=== PATIENT | female | born 1995 | race Caucasian/White ===

== ENCOUNTER 2018-02-25 12:38 | Outpatient (REF) | payer MEDICAID, SELFPAY | END 2018-02-25 12:58 | LOC: NCHCN 12:38 | PROVIDERS: PCP Physician Assistant Medical; Visit Provider Physician Assistant Medical | DX: L29.8 Other pruritus (principal); E03.9 Hypothyroidism, unspecified | CPT/HCPCS: 84443; 87480; 87510; 87660 ==

== ENCOUNTER 2018-04-10 15:14 | Outpatient (REF) | payer MEDICAID, SELFPAY ==
[2018-04-10 22:50] LABS: Bacteria Few HPF (Negative); Casts Negative LPF (Negative); Crystals Negative HPF (Negative); Epithelial Cells Many HPF (Negative); Mucus Negative (Negative); RBC Negative (0-2); WBC 0-2 HPF (0-5)
[2018-04-10 22:51] LABS: C & S Indicated? No
[2018-04-14 11:50] LABS: Syphilis Serology (RPR) Negative (Negative)
[2018-04-14 11:55] LABS: HIV-1/2 Ag & Ab Screen Negative (NEGAT)
[2018-04-14 14:07] LABS: Chlamydia Result Negative; GC Result Negative; Specimen Description VAGINAL
== END 2018-04-10 15:34 ==
LOC: NCHCN 15:14
PROVIDERS: PCP Physician Assistant Medical; Visit Provider Specialist/Technologist Athletic Trainer
DX: Z11.4 Encounter for screening for human immunodeficiency virus [HIV] (principal); Z11.3 Encounter for screening for infections with a predominantly sexual mode of transmission; N89.8 Other specified noninflammatory disorders of vagina; R30.0 Dysuria
CPT/HCPCS: 87389; 87491; 87591; 81015; 86592; 87480; 87510; 87660

== ENCOUNTER 2018-07-08 11:29 | Outpatient (REF) | payer MEDICAID, SELFPAY ==
[2018-07-08 20:42] LABS: ALT 21 U/L (12-78); AST 27 U/L (15-37); Albumin 4.6 g/dL (3.4-5.0); Alkaline Phosphatase 61 U/L (46-116); Anion Gap 14.2 mmol/L (3-11); BUN 10 mg/dL (7-18); Bilirubin, Total 0.9 mg/dL (0.2-1.0); CO2 21.8 mmol/L (21.0-32.0); CREATININE 0.66 mg/dL (0.55-1.02); Calcium 9.5 mg/dL (8.5-10.1); Chloride 101 mmol/L (98-107); FREE T4 1.43 ng/dL (0.76-1.46); Glucose 105 mg/dL (70-100); Potassium 4.3 mmol/L (3.5-5.1); Sodium 137 mmol/L (136-145); TSH 1.15 uIU/mL (0.358-3.74); Total Protein 7.9 g/dL (6.4-8.2)
[2018-07-09 17:03] LABS: T3, Total 144 ng/dl (97-169)
== END 2018-07-08 11:49 ==
LOC: NCHCN 11:29
PROVIDERS: PCP Physician Assistant Medical; Visit Provider Physician Assistant Medical
DX: E03.9 Hypothyroidism, unspecified (principal); L65.9 Nonscarring hair loss, unspecified; D64.9 Anemia, unspecified
CPT/HCPCS: 80053; 84439; 84443; 84480; 85025

== ENCOUNTER 2018-07-11 14:53 | Outpatient (REF) | payer MEDICAID, SELFPAY ==
[2018-07-11 18:58] LABS: Abs Immature Grans 0.01 k/cumm (0.0-0.09); Absolute Basophil Count 0.02 k/cumm (0.0-0.2); Absolute Eosinophil Count 0.06 k/cumm (0.0-0.7); Absolute Lymphocyte Count 2.71 k/cumm (1.2-3.4); Absolute Neutrophil Count 3.59 k/cumm (1.2-6.7); Basophils % 0.3; Eosinophils % 0.9; HGB 12.4 g/dL (12.0-15.5); Immature Grans % 0.1; Lymphocytes % 39.9; Mean Corp. HGB Concentration 34.4 g/dL (32.0-36.0); Mean Corpuscular Volume 87.2 fL (80-95); Mean Platelet Volume 9.9 fL (8.0-11.0); Monocytes % 5.9; Neutrophils % 52.9; Platelet Count 315 x1000/uL (130-400); RBC 4.13 m/cumm (4.00-5.20); RBC Distribution Width 12.5 % (11.7-14.6); White Blood Cell Count 6.79 k/cumm (4.4-10.8)
== END 2018-07-11 15:13 ==
LOC: NCHCN 14:53
PROVIDERS: PCP Physician Assistant Medical; Visit Provider Physician Assistant Medical
DX: D64.9 Anemia, unspecified (principal)
CPT/HCPCS: 85025

== ENCOUNTER 2018-11-03 09:28 | Outpatient (REF) | payer MEDICAID, SELFPAY ==
--- NOTE | 2018-11-03 08:10 | PAPFT_PTH ---
PATIENT: Jm Banegas LOC: [facility] U#:[id number] AGE/SX: 23/F ROOM: RE11/03/[address]: Kayla Santos : 1995 BED: DIS: 11/03/2018 SPEC #: [id number] RECD: 11/04/18 12:58 STATUS: CHATO RELouis #: [id number] ACOSTA: 11/03/18 08:[address]: Kayla Santos DEPT: [facility] Cytology RECD BY: Rosi Kitchen Tissues: 1 - CX/ENDOCX FOR PAP SMEARS Procedures: PAP THIN PREP/UVM Screening Comments: [id number]
[2018-11-05 12:51] LABS: Chlamydia Result Negative; GC Result Negative; Specimen Description CERVIX
== END 2018-11-03 09:48 ==
LOC: NCHCN 09:28
PROVIDERS: PCP Physician Assistant Medical; Visit Provider Physician Assistant Medical
DX: Z11.3 Encounter for screening for infections with a predominantly sexual mode of transmission (principal); Z12.4 Encounter for screening for malignant neoplasm of cervix
CPT/HCPCS: 87491; 87591; 88142; 87480; 87510; 87660

== ENCOUNTER 2020-09-14 12:55 | Outpatient (REF) | payer MEDICAID, SELFPAY ==
[2020-09-14 15:56] LABS: Absolute Basophil Count 0.02 10^3/uL (0.0-0.2); Absolute Eosinophil Count 0.06 10^3/uL (0.0-0.7); Absolute Lymphocyte Count 1.53 10^3/uL (1.2-3.4); Absolute Monocyte Count 0.29 10^3/uL (0.1-0.8); Absolute Neutrophil Count 2.09 10^3/uL (1.2-6.7); Basophils % 0.5; Eosinophils % 1.5; HCT 34.7 % (36.0-46.0); HGB 11.4 g/dL (11.2-15.7); Lymphocytes % 38.3; MCH 29.2 pg (27.0-33.0); MCHC 32.9 % (32.0-36.0); MCV 88.7 fL (80-95); Monocytes % 7.3; Neutrophils % 52.4; Nucleated RBC 0 %; Platelet Count 260 10^3/uL (130-400); RBC 3.91 10^6/uL (3.93-5.22); RDW 12.3 % (11.7-14.6); RDW-SD 39.8 fL; WBC 3.99 10^3/uL (4.4-10.8)
[2020-09-14 16:35] LABS: ALT 24 U/L (14-59); AST 18 U/L (15-37); Albumin 4.3 g/dL (3.4-5.0); Alkaline Phosphatase 72 U/L (46-116); Anion Gap 10.8 mmol/L (3-11); BUN 6 mg/dL (7-18); Bilirubin, Total 0.8 mg/dL (0.2-1.0); CO2 27.2 mmol/L (21.0-32.0); CREATININE 0.7 mg/dL (0.55-1.02); Calculated LDL 81 mg/dL (<100); Chloride 106 mmol/L (98-107); Cholesterol 152 mg/dL (<200); Glucose 88 mg/dL (74-106); HDL Cholesterol 57 mg/dL (40-60); Potassium 3.9 mmol/L (3.5-5.1); Sodium 144 mmol/L (136-145); TSH 0.83 uIU/mL (0.36-3.74); Total Protein 7.4 g/dL (6.4-8.2); Triglyceride 70 mg/dL (<150)
== END 2020-09-14 12:56 | disposition home or self-care (01) ==
LOC: NCHCN 12:55
PROVIDERS: PCP Physician Assistant Medical; Visit Provider Physician Assistant Medical
DX: E03.9 Hypothyroidism, unspecified (principal); U07.1 COVID-19
CPT/HCPCS: 80053; 80061; 84443; 85025

== ENCOUNTER 2021-01-23 15:45 | Outpatient (REF) | payer MEDICAID, SELFPAY ==
[2021-01-23 20:28] LABS: HCT 38.5 % (36.0-46.0); HGB 12.3 g/dL (11.2-15.7)
[2021-01-25 10:17] LABS: HIV-1/2 Ag & Ab Screen Negative (Negative)
[2021-01-25 10:28] LABS: Hepatitis C Ab w Rflx HCV PCR Negative (Negative)
[2021-01-25 11:15] LABS: Syphilis Serology (RPR) Negative (Negative)
[2021-01-25 15:00] LABS: Chlamydia Result Negative (Negative); GC Result Negative (Negative)
== END 2021-01-23 15:46 | disposition home or self-care (01) ==
LOC: NCHCN 15:45
PROVIDERS: PCP Physician Assistant Medical; Visit Provider Physician Assistant Medical
DX: D64.9 Anemia, unspecified (principal); Z11.3 Encounter for screening for infections with a predominantly sexual mode of transmission; Z11.4 Encounter for screening for human immunodeficiency virus [HIV]; Z11.59 Encounter for screening for other viral diseases
CPT/HCPCS: 86803; 87389; 87491; 87591; 85014; 85018; 86592

== ENCOUNTER 2021-03-08 15:50 | Outpatient (REF) | payer MEDICAID, SELFPAY | END 2021-03-08 15:51 | disposition home or self-care (01) | LOC: NCHCN 15:50 | PROVIDERS: PCP Physician Assistant Medical; Visit Provider Physician Assistant Medical | DX: N39.0 Urinary tract infection, site not specified (principal) | CPT/HCPCS: 87086 ==

== ENCOUNTER 2021-03-13 02:29 | Outpatient (CLI) | payer MEDICAID, SELFPAY ==
--- NOTE | 2021-03-13 10:30 | DI.US_ITS ---
Exam(s) US ABDOMEN EXAM: US ABDOMEN CLINICAL HISTORY: RUQ PAIN R10.11 TECHNIQUE: Ultrasound of complete upper abdomen performed using standard protocol. COMPARISON: US SURVEY*(P) from 03/01/2011 FINDINGS: There is no ascites evident. LIVER: There are no hepatic lesions evident nor obvious dilatation of intrahepatic ducts. GALLBLADDER/BILIARY: There are no gallstones. No gallbladder wall edema nor pericholecystic fluid. The common hepatic duct isnot dilated, measuring 3-4mm at the level of reagan hepatis. PANCREAS: There is no evidence of pancreatic mass nor dilatation of the pancreatic duct. SPLEEN: The spleen is not enlarged and there are no intrasplenic lesions evident. KIDNEYS:Kidneys exhibit normal size with no evidence of solid mass, calculus, nor hydronephrosis. No cortical cysts evident. ABDOMINAL AORTA: There is no evidence of abdominal aortic aneurysm. IVC: Normal diameter where visualized. IMPRESSION: 1. No evidence of cholelithiasis nor dilatation of the biliary tree. 2. No other significant ultrasound findings in the upper abdomen. 3. There is no ascites. DATA REPOSITORY:
== END 2021-03-13 02:49 ==
PROVIDERS: PCP Physician Assistant Medical; Visit Provider Physician Assistant Medical
DX: R10.11 Right upper quadrant pain (principal)
CPT/HCPCS: 76700

== ENCOUNTER 2021-08-17 21:07 | Outpatient (REF) | payer MEDICAID, SELFPAY | END 2021-08-17 21:08 | disposition home or self-care (01) | LOC: LBN 21:07 | PROVIDERS: PCP Physician Assistant Medical; Visit Provider Family Medicine | DX: N39.0 Urinary tract infection, site not specified (principal) | CPT/HCPCS: 87086 ==

== ENCOUNTER 2021-09-04 17:21 | Outpatient (REF) | payer MEDICAID, SELFPAY ==
[2021-09-04 22:41] LABS: Abs Immature Grans 0.02 10^3/uL (0.0-0.06); Absolute Basophil Count 0.03 10^3/uL (0.0-0.2); Absolute Eosinophil Count 0.02 10^3/uL (0.0-0.7); Absolute Lymphocyte Count 1.65 10^3/uL (1.2-3.4); Absolute Monocyte Count 0.46 10^3/uL (0.1-0.8); Basophils % 0.4; Eosinophils % 0.3; HCT 38.4 % (36.0-46.0); HGB 12.7 g/dL (11.2-15.7); Immature Grans % 0.3; MCH 31.5 pg (27.0-33.0); MCHC 33.1 % (32.0-36.0); MCV 95 fL (80-95); MPV 10.1 fL (8.0-11.0); Monocytes % 6.4; Neutrophils % 69.6; Platelet Count 333 10^3/uL (130-400); RBC 4.03 10^6/uL (3.93-5.22); RDW 12.3 % (11.7-14.6); RDW-SD 43.2 fL; WBC 7.18 10^3/uL (4.4-10.8)
[2021-09-04 22:57] LABS: Hemoglobin A1C 5.2 % (<5.7)
[2021-09-04 23:03] LABS: ALT 19 U/L (14-59); AST 18 U/L (15-37); Albumin 4.5 g/dL (3.4-5.0); Alkaline Phosphatase 47 U/L (46-116); BUN 10 mg/dL (7-18); Bilirubin, Total 1.4 mg/dL (0.2-1.0); CREATININE 0.9 mg/dL (0.55-1.02); Calcium 9.1 mg/dL (8.5-10.1); Chloride 105 mmol/L (98-107); Glucose 75 mg/dL (74-106); Potassium 4.9 mmol/L (3.5-5.1); Sodium 139 mmol/L (136-145); TSH 0.52 uIU/mL (0.36-3.74); Total Protein 7.5 g/dL (6.4-8.2)
== END 2021-09-04 17:22 | disposition home or self-care (01) ==
LOC: NCHCN 17:21
PROVIDERS: PCP Physician Assistant Medical; Visit Provider Physician Assistant Medical
DX: R55 Syncope and collapse (principal)
CPT/HCPCS: 80053; 83036; 84443; 85025

== ENCOUNTER → 2021-09-19 02:01 | Outpatient (CLI) | payer MEDICAID, SELFPAY ==
--- NOTE | 2021-09-19 07:45 | DI.MRI_ITS ---
Exam(s) MR BRAIN WO EXAM: MR BRAIN WO CLINICAL HISTORY: SYNCOPE, R55; ? NEW ONSET SEIZURE TECHNIQUE: Multiplanar multisequence MRI of the brain was performed. COMPARISON: No exams were available for comparison FINDINGS: The ventricular system is normal in appearance. No signal abnormality identified in the brain. The orbital and temporal bone structures appear intact as does the pituitary. Diffusion weighted imaging shows no evidence of infarction. Susceptibility weighted imaging shows no evidence of intracranial hemorrhage. There is normal flow void in the [place] vasculature. Coronal high-resolution T2 weighted images show no evidence of a temporal lobe abnormality such as me sial temporal sclerosis. IMPRESSION: Normal brain MRI. DATA REPOSITORY:
== END ==
PROVIDERS: PCP Physician Assistant Medical; Visit Provider Physician Assistant Medical
DX: R55 Syncope and collapse (principal)
CPT/HCPCS: 70551

== ENCOUNTER 2021-09-22 15:45 | Outpatient (REF) | payer MEDICAID, SELFPAY ==
[2021-09-22 15:49] LABS: Bilirubin Negative (Negative); Blood Negative (Negative); Clarity Clear (Clear); Glucose Negative (Negative); Ketones 15 mg/dL (Negative); Leukocyte Esterase Negative (Negative); Nitrite Negative (Negative); Urobilinogen 0.2 EU/dL (Up TO 0.2)
[2021-09-25 10:24] LABS: Syphilis Serology (RPR) Negative (Negative)
[2021-09-25 10:57] LABS: HIV-1/2 Ag & Ab Screen Negative (Negative)
[2021-09-25 11:48] LABS: Hepatitis C Ab w Rflx HCV PCR Negative (Negative)
[2021-09-25 15:22] LABS: Chlamydia Result Negative (Negative); GC Result Negative (Negative)
== END 2021-09-22 15:46 | disposition home or self-care (01) ==
LOC: NCHCN 15:45
PROVIDERS: PCP Physician Assistant Medical; Visit Provider Nurse Practitioner Family
DX: Z11.3 Encounter for screening for infections with a predominantly sexual mode of transmission (principal); Z11.4 Encounter for screening for human immunodeficiency virus [HIV]; Z11.59 Encounter for screening for other viral diseases; R30.9 Painful micturition, unspecified
CPT/HCPCS: 86803; 87389; 87491; 87591; 81003; 86592; 87480; 87510; 87660

== ENCOUNTER 2022-09-05 12:13 | Outpatient (REF) | payer MEDICAID, SELFPAY ==
--- NOTE | 2022-09-05 11:15 | PAPFT_PTH ---
PATIENT: Jm Banegas LOC: [facility]#:[id number] AGE/SX: 27/F ROOM: RE09/05/[address]: Kayla Santos : 1995 BED: DIS: 09/05/2022 SPEC #: [id number] RECD: 09/05/22 17:08 STATUS: CHATO RELouis #: [id number] ACOSTA: 09/05/22 11:[address]: Kayla Santos DEPT: [facility] Cytology RECD BY: Rosi Kitchen Tissues: 1 - CX/ENDOCX FOR PAP SMEARS Procedures: PAP THIN PREP/UVM Screening Comments: [id number] (CHLAMYDIA/GC)
[2022-09-13 11:35] LABS: Chlamydia Result Negative (Negative)
[2022-09-13 11:36] LABS: GC Result Negative (Negative)
== END 2022-09-05 12:14 | disposition home or self-care (01) ==
LOC: NCHCN 12:13
PROVIDERS: PCP Physician Assistant Medical; Visit Provider Physician Assistant Medical
DX: Z11.3 Encounter for screening for infections with a predominantly sexual mode of transmission (principal); Z12.4 Encounter for screening for malignant neoplasm of cervix
CPT/HCPCS: 87491; 87591; 88142

== ENCOUNTER 2022-09-05 15:33 | Outpatient (CLI) | payer MEDICAID, SELFPAY ==
[2022-09-05 15:31] LABS: HCT 35.6 % (36.0-46.0); MCHC 33.7 % (32.0-36.0); MCV 92 fL (80-95); MPV 8.9 fL (8.0-11.0); Platelet Count 278 10^3/uL (130-400); RBC 3.87 10^6/uL (3.93-5.22); RDW 11.8 % (11.7-14.6); RDW-SD 39.5 fL
[2022-09-05 16:03] LABS: ALT 25 U/L (14-59); AST 18 U/L (15-37); Albumin 4.2 g/dL (3.4-5.0); Alkaline Phosphatase 60 U/L (46-116); Anion Gap 9.8 mmol/L (3-11); BUN 10 mg/dL (7-18); Bilirubin, Total 0.7 mg/dL (0.2-1.0); CO2 25.2 mmol/L (21.0-32.0); CREATININE 0.7 mg/dL (0.55-1.02); Calcium 8.9 mg/dL (8.5-10.1); Chloride 103 mmol/L (98-107); Estimated GFR 119.99 (mL/min/1.73m2); Glucose 91 mg/dL (74-106); Potassium 3.7 mmol/L (3.5-5.1); Sodium 138 mmol/L (136-145); TSH 0.35 uIU/mL (0.36-3.74); Total Protein 7.5 g/dL (6.4-8.2)
== END 2022-09-05 15:34 | disposition home or self-care (01) ==
LOC: LBO 15:34
PROVIDERS: PCP Physician Assistant Medical; Visit Provider Physician Assistant Medical
DX: D03.9 Melanoma in situ, unspecified (principal); D64.9 Anemia, unspecified; F98.8 Other specified behavioral and emotional disorders with onset usually occurring in childhood and adolescence
CPT/HCPCS: 36415; 80053; 85027; 84443

== ENCOUNTER 2022-11-06 16:35 | Outpatient (REF) | payer MEDICAID, SELFPAY ==
[2022-11-06 19:49] LABS: TSH (W/Ref FT4) 3.23 uIU/mL (0.36-3.74)
== END 2022-11-06 16:36 | disposition home or self-care (01) ==
LOC: NCHCN 16:35
PROVIDERS: PCP Physician Assistant Medical; Visit Provider Physician Assistant Medical
DX: E03.9 Hypothyroidism, unspecified (principal)
CPT/HCPCS: 84443

== ENCOUNTER 2023-02-05 15:27 | Outpatient (REF) | payer MEDICAID, SELFPAY ==
[2023-02-05 16:24] LABS: TSH 1.11 uIU/mL (0.36-3.74)
[2023-02-06 09:59] LABS: Hepatitis C Ab w Rflx HCV PCR Negative (Negative)
[2023-02-06 10:14] LABS: HIV-1/2 Ag & Ab Screen Negative (Negative)
[2023-02-06 12:39] LABS: Syphilis Serology (RPR) Negative (Negative)
[2023-02-06 13:11] LABS: Chlamydia Result Negative (Negative); GC Result Negative (Negative)
== END 2023-02-05 15:28 | disposition home or self-care (01) ==
LOC: NCHCN 15:27
PROVIDERS: PCP Physician Assistant Medical; Visit Provider Physician Assistant Medical
DX: Z11.3 Encounter for screening for infections with a predominantly sexual mode of transmission (principal); E03.9 Hypothyroidism, unspecified
CPT/HCPCS: 86803; 87389; 87491; 87591; 84443; 86592

== ENCOUNTER 2023-05-28 08:22 | Outpatient (CLI) | payer MEDICAID, SELFPAY | END 2023-05-28 08:23 | disposition home or self-care (01) | LOC: CARDOPNVT 08:22 | PROVIDERS: PCP Physician Assistant Medical; Visit Provider Physician Assistant Medical | DX: I45.81 Long QT syndrome (principal) | CPT/HCPCS: 93246 ==

== ENCOUNTER 2023-06-05 14:28 | Outpatient (CLI) | payer MEDICAID, SELFPAY ==
[2023-06-05 15:08] LABS: TSH (W/Ref FT4) 0.76 uIU/mL (0.36-3.74)
== END 2023-06-05 14:29 | disposition home or self-care (01) ==
LOC: LBO 14:28
PROVIDERS: PCP Physician Assistant Medical; Visit Provider Physician Assistant Medical
DX: E03.9 Hypothyroidism, unspecified (principal)
CPT/HCPCS: 36415; 84443

== ENCOUNTER 2023-06-12 03:49 | Outpatient (CLI) | payer MEDICAID, SELFPAY ==
[2023-06-12 15:11] LABS: Abs Immature Grans 0.02 10^3/uL (0.0-0.06); Absolute Basophil Count 0.06 10^3/uL (0.0-0.2); Absolute Eosinophil Count 0.06 10^3/uL (0.0-0.7); Absolute Lymphocyte Count 2.27 10^3/uL (1.2-3.4); Absolute Monocyte Count 0.46 10^3/uL (0.1-0.8); Basophils % 0.7; Eosinophils % 0.7; HCT 37.1 % (36.0-46.0); HGB 12.2 g/dL (11.2-15.7); Immature Grans % 0.2; Lymphocytes % 26.5; MCH 29.5 pg (27.0-33.0); MCHC 32.9 % (32.0-36.0); MCV 90 fL (80-95); MPV 9.8 fL (8.0-11.0); Monocytes % 5.4; Neutrophils % 66.5; Platelet Count 235 10^3/uL (130-400); RBC 4.13 10^6/uL (3.93-5.22); RDW 12.9 % (11.7-14.6); RDW-SD 42.3 fL; WBC 8.57 10^3/uL (4.4-10.8)
[2023-06-12 18:06] LABS: Panorama Kit Sent via Fed Ex
[2023-06-12 22:32] LABS: Hepatitis B Surface Ag Negative (Negative)
[2023-06-12 23:01] LABS: HIV-1/2 Ag & Ab Screen Negative (Negative)
[2023-06-12 23:03] LABS: Hepatitis C Ab w Rflx HCV PCR Negative (Negative)
[2023-06-13 10:31] LABS: Varicella IgG Antibody Positive (See Note)
[2023-06-13 10:33] LABS: Rubella IgG Ab (UVM) Positive (See Note)
[2023-06-14 12:27] LABS: Syphilis IgG w/Reflex Nonreactive (Nonreactive)
== END 2023-06-12 03:50 | disposition home or self-care (01) ==
LOC: LBO 03:49
PROVIDERS: PCP Physician Assistant Medical; Visit Provider Advanced Practice Midwife
DX: Z34.91 Encounter for supervision of normal pregnancy, unspecified, first trimester (principal); Z3A.10 10 weeks gestation of pregnancy; Z36.89 Encounter for other specified antenatal screening
CPT/HCPCS: 36415; 86787; 86803; 86850; 86900; 86901; 87340; 87389; 85025; 86762; 86780

== ENCOUNTER 2023-06-12 14:18 | Outpatient (REF) | payer MEDICAID, SELFPAY ==
[2023-06-12 18:09] LABS: *AMPHETAMINES SCREEN URINE Negative (Negative); *BARBITURATES SCREEN URINE Negative (Negative); *BENZODIAZEPINES SCREEN URINE Negative (Negative); Cannabinoids THC Negative (Negative); Cocaine Screen,Urine Negative (Negative); METHADONE URINE SCREEN Negative (Negative); OPIATES URINE SCREEN Negative (Negative)
[2023-06-12 18:13] LABS: Tricyclic Antidepressants Negative (Negative)
[2023-06-14 11:38] LABS: Fentanyl Scr w/Rfx Confirm Negative ng/mL (<1)
[2023-06-14 13:23] LABS: Chlamydia Result Negative (Negative); GC Result Negative (Negative)
[2023-06-20 09:16] LABS: Buprenorphine Negative ng/mL (Cutoff: 5.0); Norbuprenorphine Negative ng/mL (Cutoff: 2.5)
== END 2023-06-12 14:19 | disposition home or self-care (01) ==
LOC: LBN 14:18
PROVIDERS: PCP Physician Assistant Medical; Visit Provider Advanced Practice Midwife
DX: Z34.91 Encounter for supervision of normal pregnancy, unspecified, first trimester (principal); Z11.3 Encounter for screening for infections with a predominantly sexual mode of transmission; Z3A.10 10 weeks gestation of pregnancy
CPT/HCPCS: 80307; 80348; 87491; 87591; 87086

== ENCOUNTER 2023-06-17 13:40 | Outpatient (CLI) | payer MEDICAID, SELFPAY ==
--- NOTE | 2023-06-17 15:54 | W.CARDEVENT ---
Date of service: 06/17/23 Time of Service: 15:54 Cardiac Event Recorder Referring Provider:: Kayla Santos Indications:: Long QT syndrome Cardiac Event Note: This is a 14-day cardiac event monitor. Patient was monitored for 13 days and 18 hours Predominant rhythm was sinus with an average heart rate of 91. Minimum was 62, maximum 175 There were very rare ventricular ectopic beats. There was 1 ventricular There were rare atrial premature beats There was no atrial fibrillation, no SVT, no high-grade AV block, no pauses greater than 3 seconds Patient symptoms were reported. The majority of these corresponded to sinus rhythm, rarely to sinus tachycardia, rate 101
== END 2023-06-17 13:41 | disposition home or self-care (01) ==
LOC: CARDOPNVT 13:40
PROVIDERS: PCP Physician Assistant Medical; Visit Provider Internal Medicine Cardiovascular Disease
DX: I45.81 Long QT syndrome (principal)

== ENCOUNTER 2023-07-11 18:38 | Emergency (ER) | payer MEDICAID, SELFPAY ==
--- NOTE | 2023-07-11 18:45 | DI.RAD_ITS ---
Exam(s) XR CHEST 2V PA LATERAL EXAM: XR CHEST 2V PA LATERAL CLINICAL HISTORY: cough, r/o pneumonia. TECHNIQUE: 2D digital imaging was performed. COMPARISON: No exams were available for comparison FINDINGS: 2 views: Heart size is normal. The mediastinum is not widened. Lungs are clear. No infiltrates nor pleural effusions. IMPRESSION: No acute pulmonary findings. DATA REPOSITORY: RADIATION DOSE DELIVERED:
[2023-07-11 18:48] VITALS: BP 114/59; PULSE 72; RESP 16; TEMP 36.7; O2SAT 100
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
[2023-07-11 20:02] LABS: Absolute Basophil Count 0.03 10^3/uL (0.0-0.2); Absolute Eosinophil Count 0.06 10^3/uL (0.0-0.7); Absolute Lymphocyte Count 2.32 10^3/uL (1.2-3.4); Basophils % 0.6; Eosinophils % 1.2; HCT 32.5 % (36.0-46.0); HGB 11.1 g/dL (11.2-15.7); Lymphocytes % 46.3; MCH 30.7 pg (27.0-33.0); MCHC 34.2 % (32.0-36.0); MCV 90 fL (80-95); MPV 8.6 fL (8.0-11.0); Neutrophils % 45.9; Platelet Count 279 10^3/uL (130-400); RBC 3.61 10^6/uL (3.93-5.22); RDW 12.2 % (11.7-14.6); RDW-SD 40.3 fL; WBC 5.01 10^3/uL (4.4-10.8)
[2023-07-11 20:26] LABS: HCG Quant, Pregnancy 333 mIU/mL (1-3)
[2023-07-11 20:29] LABS: ALT 18 U/L (14-59); AST 17 U/L (15-37); Albumin 3.6 g/dL (3.4-5.0); Alkaline Phosphatase 56 U/L (46-116); Anion Gap 9.9 mmol/L (3-11); BUN 6 mg/dL (7-18); Bilirubin, Total 0.6 mg/dL (0.2-1.0); CO2 27.1 mmol/L (21.0-32.0); CREATININE 0.7 mg/dL (0.55-1.02); Calcium 8.9 mg/dL (8.5-10.1); Chloride 106 mmol/L (98-107); Estimated GFR 119.24 (mL/min/1.73m2); Glucose 85 mg/dL (74-106); Potassium 3.4 mmol/L (3.5-5.1); Sodium 143 mmol/L (136-145); TSH (W/Ref FT4) 0.66 uIU/mL (0.36-3.74); Total Protein 6.6 g/dL (6.4-8.2)
--- NOTE | 2023-07-11 20:30 | DI.VRAD_ITS ---
PROCEDURE INFORMATION: Exam: XR Chest Exam date and time: 07/11/2023 8:05 PM Age: 28 years old Clinical indication: Cough; Additional info: Cough, R/O pneumonia TECHNIQUE: Imaging protocol: Radiologic exam of the chest. Views: 2 views. COMPARISON: No relevant prior studies available. FINDINGS: Lungs: See Soft tissues finding. Pleural spaces: Unremarkable. No pleural effusion. No pneumothorax. Heart/Mediastinum: Unremarkable. No cardiomegaly. Bones/joints: Unremarkable. Soft tissues: There is a left-sided nipple shadow noted, anatomic variant. On the right side there is a soft tissue nodular density which could represent a slightly asymmetric nipple shadow measuring 11 mm in diameter. Lung nodule not excludable. The lungs are well inflated. No evidence for consolidation. IMPRESSION: Right lung nodule versus atypical nipple shadow. No additional acute abnormality evident. Dictated and Authenticated by: Skyla Bauer MD. Ordering:ALEXIS Hernandez MD
[2023-07-11 20:36] LABS: D-Dimer 126 ng/mlFEU (<500)
[2023-07-11 20:41] LABS: COVID-19 PCR Negative (Negative); Influenza A PCR Negative (Negative); Influenza B PCR Negative (Negative); RSV PCR Negative (Negative)
[2023-07-11 20:42] LABS: Source NASOPHARYNX
[2023-07-11 21:21] VITALS: PULSE 68; RESP 16; TEMP 36.5; O2SAT 99
[2023-07-11] MEDS: Ketorolac 15 MG/ML VIAL IVP (21:21)
== END 2023-07-11 21:22 | disposition home or self-care (01) ==
PROVIDERS: Emergency Provider Student in an Organized Health Care Education/Training Program; PCP Physician Assistant Medical
DX: R06.02 Shortness of breath (principal); R50.9 Fever, unspecified; R10.9 Unspecified abdominal pain; O03.4 Incomplete spontaneous abortion without complication; J06.9 Acute upper respiratory infection, unspecified; J45.909 Unspecified asthma, uncomplicated; E03.9 Hypothyroidism, unspecified; Z79.899 Other long term (current) drug therapy; R91.8 Other nonspecific abnormal finding of lung field; F90.9 Attention-deficit hyperactivity disorder, unspecified type
CPT/HCPCS: 80053; 86900; 86901; 87637; 96374; 99284; 71046; 84443; 84702; 85025; 85379; J1885

== ENCOUNTER 2023-07-23 12:08 | Outpatient (CLI) | payer MEDICAID, SELFPAY ==
[2023-07-23 11:00] LABS: HCG Quant, Pregnancy 21 mIU/mL (1-3)
== END 2023-07-23 12:09 | disposition home or self-care (01) ==
LOC: LBO 12:09
PROVIDERS: PCP Physician Assistant Medical; Visit Provider Obstetrics & Gynecology
DX: O03.9 Complete or unspecified spontaneous abortion without complication (principal)
CPT/HCPCS: 36415; 84702

== ENCOUNTER 2024-02-05 05:03 | Outpatient (CLI) | payer MEDICAID, SELFPAY ==
[2024-02-05 16:42] LABS: Panorama Kit Sent via Fed Ex
[2024-02-05 16:46] LABS: Abs Immature Grans 0.02 10^3/uL (0.0-0.06); Absolute Basophil Count 0.04 10^3/uL (0.0-0.2); Absolute Eosinophil Count 0.06 10^3/uL (0.0-0.7); Absolute Lymphocyte Count 2.18 10^3/uL (1.2-3.4); Absolute Monocyte Count 0.37 10^3/uL (0.1-0.8); Absolute Neutrophil Count 5.98 10^3/uL (1.2-6.7); Basophils % 0.5 %; Eosinophils % 0.7 %; HCT 36.7 % (36.0-46.0); HGB 12.7 g/dL (11.2-15.7); Immature Grans % 0.2 %; Lymphocytes % 25.2 %; MCH 29.6 pg (27.0-33.0); MCHC 34.6 % (32.0-36.0); MCV 86 fL (80-95); MPV 8.9 fL (8.0-11.0); Monocytes % 4.3 %; Neutrophils % 69.1 %; Platelet Count 329 10^3/uL (130-400); RBC 4.29 10^6/uL (3.93-5.22); RDW 13.2 % (11.7-14.6); RDW-SD 41.1 fL; WBC 8.65 10^3/uL (4.4-10.8)
[2024-02-06 21:21] LABS: HIV-1/2 Ag & Ab Screen Negative (Negative)
[2024-02-07 08:52] LABS: Hepatitis B Surface Ag Negative (Negative)
[2024-02-07 09:26] LABS: Hepatitis C Ab w Rflx HCV PCR Negative (Negative)
[2024-02-07 11:50] LABS: Varicella IgG Antibody Positive (See Note)
[2024-02-07 11:56] LABS: Rubella IgG Ab (UVM) Positive (See Note)
[2024-02-09 13:44] LABS: Syphilis IgG w/Reflex Nonreactive (Nonreactive)
== END 2024-02-05 05:04 | disposition home or self-care (01) ==
LOC: LBO 05:03
PROVIDERS: PCP Physician Assistant Medical; Visit Provider Advanced Practice Midwife
DX: Z34.91 Encounter for supervision of normal pregnancy, unspecified, first trimester (principal)
CPT/HCPCS: 36415; 86787; 86803; 86850; 86900; 86901; 87340; 87389; 84443; 85025; 86762; 86780

== ENCOUNTER 2024-02-05 15:36 | Outpatient (REF) | payer MEDICAID, SELFPAY ==
[2024-02-05 17:30] LABS: *AMPHETAMINES SCREEN URINE Positive (Negative); *BARBITURATES SCREEN URINE Negative (Negative); *BENZODIAZEPINES SCREEN URINE Negative (Negative); Cannabinoids THC Negative (Negative); Cocaine Screen,Urine Negative (Negative); METHADONE URINE SCREEN Negative (Negative); OPIATES URINE SCREEN Negative (Negative); Tricyclic Antidepressants Negative (Negative)
[2024-02-07 11:34] LABS: Fentanyl Scr w/Rfx Confirm Negative ng/mL (<1)
[2024-02-07 12:36] LABS: Chlamydia Result Negative (Negative); GC Result Negative (Negative)
[2024-02-12 07:23] LABS: Buprenorphine Negative ng/mL (Cutoff: 5.0); Norbuprenorphine Negative ng/mL (Cutoff: 2.5)
== END 2024-02-05 15:37 | disposition home or self-care (01) ==
LOC: LBN 15:36
PROVIDERS: PCP Physician Assistant Medical; Visit Provider Advanced Practice Midwife
DX: Z34.91 Encounter for supervision of normal pregnancy, unspecified, first trimester (principal); Z3A.12 12 weeks gestation of pregnancy
CPT/HCPCS: 80307; 80348; 87491; 87591; 87086

== ENCOUNTER 2024-04-14 01:47 | Outpatient (CLI) | payer MEDICAID, SELFPAY ==
--- NOTE | 2024-04-14 | DI.US_ITS ---
Exam(s) US OB 2-3 TRIMESTER EXAM: US OB 2-3 TRIMESTER CLINICAL HISTORY: SURVEY,Z34.91,Z34.90. TECHNIQUE: Transabdominal obstetrical ultrasound performed. COMPARISON: No exams were available for comparison FINDINGS: Number of fetuses: 1 position: VARIABLE heart rate: 162bpm Placental location: There is a grade 1 posterior placenta. The placental tip is 4.2 cm from the inte rnal os. No evidence of previa. Amniotic fluid index: Amount of fluid is within normal limits. ANATOMICAL SURVEY: Within normal limits. BIOMETRIC DATA: BPD: 5.59cm, 23weeks HC: 20.83cm, 22weeks 6days AC: 18.28cm, 23weeks 1day FL: 3.64cm, 21weeks 4days Cisterna magna: 5.9mm Cerebellum: 2.19cm Lateral ventricle: 0.62 cm EFW: 509.14g, 1lb 2.67oz, 76.9% Composite Age: 22weeks 5days MELANIE: 08/13/2024 Heart Rate: 162bpm ANATOMICAL SURVEY: Four-chambered heart: Unremarkable. RVOT: Unremarkable. LVOT: Unremarkable. Left-sided stomach: Unremarkable. urinary bladder: Unremarkable. Bilateral kidneys: Unremarkable. Three-vessel cord: Unremarkable. Cord insertion: Unremarkable. Posterior fossa: Unremarkable. ventricles: Unremarkable. nose/lips: Unremarkable. Palate: Unremarkable. spine: Unremarkable. Two arms and two legs: Unremarkable. IMPRESSION: 1. Single live intrauterine gestation as above. 2. Normal anatomic survey. DATA REPOSITORY:
== END 2024-04-14 02:07 ==
LOC: DI 01:47
PROVIDERS: PCP Physician Assistant Medical; Visit Provider Advanced Practice Midwife
DX: Z34.92 Encounter for supervision of normal pregnancy, unspecified, second trimester (principal); Z3A.22 22 weeks gestation of pregnancy
CPT/HCPCS: 76805

== ENCOUNTER 2024-04-15 04:25 | Outpatient (CLI) | payer MEDICAID, SELFPAY ==
[2024-04-15 15:34] LABS: TSH (W/Ref FT4) 1.22 uIU/mL (0.36-3.74)
== END 2024-04-15 04:26 | disposition home or self-care (01) ==
LOC: LBO 04:25
PROVIDERS: PCP Physician Assistant Medical; Visit Provider Advanced Practice Midwife
DX: O99.282 Endocrine, nutritional and metabolic diseases complicating pregnancy, second trimester (principal); E03.9 Hypothyroidism, unspecified
CPT/HCPCS: 36415; 84443

== ENCOUNTER 2024-06-02 11:08 | Outpatient (REF) | payer MEDICAID, SELFPAY ==
[2024-06-02 13:46] LABS: *AMPHETAMINES SCREEN URINE Positive (Negative); *BARBITURATES SCREEN URINE Negative (Negative); *BENZODIAZEPINES SCREEN URINE Negative (Negative); Cannabinoids THC Negative (Negative); Cocaine Screen,Urine Negative (Negative); METHADONE URINE SCREEN Negative (Negative); OPIATES URINE SCREEN Negative (Negative)
[2024-06-02 13:48] LABS: Tricyclic Antidepressants Negative (Negative)
[2024-06-03 11:25] LABS: Fentanyl Scr w/Rfx Confirm Negative ng/mL (<1)
[2024-06-10 08:32] LABS: Buprenorphine Negative ng/mL (Cutoff: 5.0); Norbuprenorphine Negative ng/mL (Cutoff: 2.5)
== END 2024-06-02 11:09 | disposition home or self-care (01) ==
LOC: LBN 11:08
PROVIDERS: PCP Physician Assistant Medical; Visit Provider Advanced Practice Midwife
DX: Z34.92 Encounter for supervision of normal pregnancy, unspecified, second trimester (principal)
CPT/HCPCS: 80307; 80348

== ENCOUNTER 2024-06-10 04:13 | Outpatient (CLI) | payer MEDICAID, SELFPAY ==
[2024-06-10 09:20] LABS: Glucose 1 Hour 235 mg/dL
[2024-06-10 11:33] LABS: Glucose 3 Hour 61 mg/dL
== END 2024-06-10 04:14 | disposition home or self-care (01) ==
LOC: LBO 04:13
PROVIDERS: PCP Physician Assistant Medical; Visit Provider Advanced Practice Midwife
DX: Z34.93 Encounter for supervision of normal pregnancy, unspecified, third trimester (principal)
CPT/HCPCS: 36415; 82951

== ENCOUNTER 2024-07-07 01:52 | Outpatient (CLI) | payer MEDICAID, SELFPAY ==
--- NOTE | 2024-07-07 06:45 | DI.US_ITS ---
Exam(s) US OB CONOR WEIGHT EXAM: US OB CONOR WEIGHT CLINICAL HISTORY: medication exposure,z34.90,. TECHNIQUE: Transabdominal obstetrical ultrasound performed. COMPARISON: US US OB 2-3 TRIMESTER from 04/14/2024 FINDINGS: Number of fetuses: 1 position: BREECH Placental location: There is a grade 2 posterior placenta. No evidence of previa. BIOMETRIC DATA: BPD: 8.37cm, 33weeks 5days HC: 31.08cm, 34weeks 5days AC: 28.59cm, 32weeks 4days FL: 6.45cm, 33weeks 2days EFW: 2,124.2g, 4lb 11.07oz, 22.8% Composite Age: 33weeks 4days MELANIE: 08/21/2024 Heart Rate: 154bpm Amniotic fluid index: 19.1cm. The largest pocket measures 5.7 cm. IMPRESSION: 1. Single live intrauterine gestation as above. 2. Estimated weight is 2124gms. This is the 23rd percentile. 3. Amniotic fluid index is 19.1 cm. The largest pocket measures 5.7 cm. DATA REPOSITORY:
== END 2024-07-07 02:12 ==
LOC: DI 01:52
PROVIDERS: PCP Physician Assistant Medical; Visit Provider Advanced Practice Midwife
DX: Z34.93 Encounter for supervision of normal pregnancy, unspecified, third trimester (principal); Z3A.33 33 weeks gestation of pregnancy
CPT/HCPCS: 76816

== ENCOUNTER 2024-07-28 13:07 | Outpatient (REF) | payer MEDICAID, SELFPAY ==
[2024-07-28 16:48] LABS: FREE T4 1.23 ng/dL (0.76-1.46); TSH 2.27 uIU/mL (0.36-3.74)
== END 2024-07-28 13:08 | disposition home or self-care (01) ==
LOC: NCHCN 13:07
PROVIDERS: PCP Physician Assistant Medical; Visit Provider Physician Assistant Medical
DX: E03.9 Hypothyroidism, unspecified (principal)
CPT/HCPCS: 84439; 84443

== ENCOUNTER 2024-07-29 12:31 | Outpatient (REF) | payer MEDICAID, SELFPAY | END 2024-07-29 12:32 | disposition home or self-care (01) | LOC: LBN 12:31 | PROVIDERS: PCP Physician Assistant Medical; Visit Provider Advanced Practice Midwife | DX: Z34.93 Encounter for supervision of normal pregnancy, unspecified, third trimester (principal) | CPT/HCPCS: 87081 ==

== ENCOUNTER 2024-08-05 20:19 | Inpatient (IN) | payer MEDICAID, SELFPAY ==
[2024-08-05] VITALS (25 sets, daily range): BP systolic 113–156; BP diastolic 65–94; PULSE 62–88; RESP 11–23; TEMP 36.4–36.8; O2SAT 98–100; BMI 30.1
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
[2024-08-05 10:34] LABS: HCT 35.1 % (36.0-46.0); HGB 11.1 g/dL (11.2-15.7); MCH 26.6 pg (27.0-33.0); MCHC 31.6 % (32.0-36.0); MCV 84 fL (80-95); MPV 10.6 fL (8.0-11.0); Platelet Count 262 10^3/uL (130-400); RBC 4.17 10^6/uL (3.93-5.22); RDW 13.9 % (11.7-14.6); RDW-SD 42.2 fL; WBC 6.75 10^3/uL (4.4-10.8)
[2024-08-05 10:47] LABS: COMMENT (LAB VIEW ONLY) 40.17 mg/dL; PROTEIN 10.1 mg/dL; Prot/Crea Ur Ratio 0.25
[2024-08-05 10:50] LABS: ALT 32 U/L (14-59); AST 45 U/L (15-37); Albumin 2.8 g/dL (3.4-5.0); Alkaline Phosphatase 324 U/L (46-116); Anion Gap 8.9 mmol/L (3-11); BUN 11 mg/dL (7-18); Bilirubin, Total 0.3 mg/dL (0.2-1.0); CO2 25.1 mmol/L (21.0-32.0); CREATININE 0.8 mg/dL (0.55-1.02); Calcium 10.2 mg/dL (8.5-10.1); Chloride 107 mmol/L (98-107); Estimated GFR 100.96 (mL/min/1.73m2); Glucose 72 mg/dL (74-106); Potassium 3.8 mmol/L (3.5-5.1); Sodium 141 mmol/L (136-145); Total Protein 6.4 g/dL (6.4-8.2)
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
[2024-08-05] MEDS: MAGNESIUM SULFATE 20 GM/500 ML BAG IV_INF ×2 (11:43→20:39)
--- NOTE | 2024-08-05 11:45 | PGE_ITS ---
Date of Service Date of service: 08/05/24 Time of Service: 11:46 Assessment and Plan Assessment and plan (1) Pre-eclampsia affecting childbirth: Status: Acute Assessment and plan: Liver enzymes have returned elevated. Spoke with patient regarding labs and need to initiate magnesium therapy. Also discussed with midwifery team; they would like to hand labor management back to us. Patient is in agreement. Discussed placement of lema catheter (for accurate I's and O's) as well as Cook catheter for cervical ripening with concominant pharmacological ripening agent. All questions answered to patient's satisfaction and she is in agreement with plan. Exam Narrative Exam Narrative: Resting comfortably; pleasant. No overt neurological deficits. Objective Last Vital Signs Temp 98.1 F 08/05/24 10:18 Pulse 75 08/05/24 10:25 Resp 16 08/05/24 10:18 BP 156/93 H 08/05/24 10:25 Laboratory Results - last 24 hr 08/05/24 08/05/24 08/05/24 09:16 09:55 10:18 WBC Cancelled 6.75 RBC Cancelled 4.17 Hgb Cancelled 11.1 L Hct Cancelled 35.1 L MCV Cancelled 84 MCH Cancelled 26.6 L MCHC Cancelled 31.6 L RDW Cancelled 13.9 Plt Count Cancelled 262 MPV Cancelled 10.6 Sodium 141 Potassium 3.8 Chloride 107 Carbon Dioxide 25.1 Anion Gap 8.9 BUN 11 Creatinine 0.8 Est GFR (CKD-EPI 2020) 100.96 Glucose 72 L Calcium 10.2 H Total Bilirubin 0.3 AST 45 H ALT 32 Alkaline Phosphatase 324 H Total Protein 6.4 Albumin 2.8 L Ur Random Creatinine 40.17 U Random Total Protein 10.1 U Fenton Prot/Creat Ratio 0.25 ABO/Rh Cancelled O Positive Antibody Screen Cancelled NEGATIVE Time Spent with Patient Time Spent with Patient: 25-34 minutes Time was spent: preparing to see the patient(eg.review tests), obtaining and/or reviewing separately otained hiistory, ordering medications,tests, procedures, referring, communicating with other health neonatal intensive care unit nurse, indepentently interpreting results, counseling the patient and care coordination
[2024-08-05] MEDS: Lactated Ringers 1,000 ML 30 ML IV (12:30)
[2024-08-05] MEDS: Lactated Ringers 1,000 ML 75 ML IV (14:00)
--- NOTE | 2024-08-05 14:05 | W.PM.OBCSECT ---
Date of service: 08/05/24 Time of Service: 14:05 Operative Note Operative Note Delivery Method: Scheduled and Primary NTSV>37 Weeks: Yes DATE OF PROCEDURE: 08/05/24 PRE-OP DIAGNOSES: Breech presentation in the setting of failed version POST-OP DIAGNOSES: same Pre-eclampsia with severe features GDMA1 Hypothyroid ADHD PROCEDURE: Primary Low Transverse Section SURGEON: Avani Bal Assisting Surgeon: Inge Reece Anesthesia: spinal Estimated blood loss (mL): 200 Pathology: other (Placenta) Complications: None Patient was transported to: floor Patient's condition: stable Indications: 29 yo (h/o x1) presented to L&D at 38 0/7 for scheduled external cephalic version for breech presentation in the setting of gestational hypertension. Upon admission, she was noted to have elevated liver enzymes, and she met criteria for pre-eclampsia with severe features. She was initiated on Magnesium therapy. She was thoroughly counseled on risks and benefits of ECV and , and she was consented for ECV with subsequent IOL, possible section and transfusion of blood products as necessary. See procedure note for details of ECV. Her ECV was ultimately not successful, though well tolerated, and she was prepped for . Findings: Moderate tissue laxity. Unremarkable anatomy. Meconium stained fluid. Viable female infant in ashley breech presentation. Short umbilical cord. Procedure Description: Patient was already in the OR with IV fluids running as well as magnesium therapy.? She received 2 grams of Ancef for prophylaxis. Spinal anesthesia had already been established, and the patient was positioned into supine positioning with her arms abducted at her sides.? The vagina was prepped with Betadine.? A lema catheter was already inserted. The abdomen was prepped with Chlorohexedine and allowed to dry for three minutes.? The patient was then draped in the usual, sterile fashion, and the bed was placed at a leftward tilt.? The abdomen was marked with the intended pfannestiel site. A timeout was performed; the patient and procedure were identified.? Testing of the levels of anesthesia was found to be adequate.?? A Pfannenstiel incision was created with scalpel and carried down to the level of the fascia with bovie cautery.? The fascia was incised, and the incision was carried laterally with curved delgado scissors. The anterior leaf of fascia was then tented up with kocker claps, and the underlying rectus muscle was dissected off with a combination of blunt and sharp dissection.? The same was done for the inferior leaf.? The midline of the rectus was identified and bluntly dissected revealing the underlying peritoneum.? The peritoneum was tented up with stats and incised with metzenbaum scissors after assuring no underlying bowel.? A large Sukumar retractor was placed.? A bladder flap was created using Metzenbaums and Russians.? A low transverse incision was made using a fresh #10 blade, and the incision was extended using blunt traction.? The fluid sac was ruptured with an allis clamp, and clear fluid was noted. The fetus was presenting as ashley breech. The bottom was brought to the level of the hysterotomy with careful attention to avoid using the incision as a fulcrum.? The rest of the body followed easily with gentle fundal pressure from the human resources office assistant without issue. The cord was clamped twice and cut and the baby transferred to the warmer, awaiting the pediatric staff.? Pitocin was initiated.? A segment of cord was collected for gases. Cord blood was then obtained. The placenta was then delivered with assistance and fundal massage. The uterus was explored to ensure all tissue was cleared. The uterus was then exteriorized for better visualization and wrapped in a moistened lap.? Ring forceps were used to grasp the lower uterine segment, and the uterine incision was closed with a running locked layer of 0 Vicryl.? A second layer of 0 Vicryl imbricating stitch was used to secure the hysterotomy.? An initial assessment found in the hysterotomy hemostatic.??? Stats were used to grasp the peritoneum, and the layer was closed using a running 2-0 vicryl with careful attention to guard any underlying bowel with retraction.? Careful inspection of the rectus muscle appreciated good hemostasis.? The right apex of the fascia was secured with a kocker clamp, and the fascia was then closed with a running 0-vicryl.? Careful inspection of the subcuticular tissues appreciated good hemostasis, and this layer was closed with a running 3-0 vicryl.? 20 cc's of 0.25% Marcaine was injected into the subcuticular tissues, and hemostasis was again confirmed.? The skin was reapproximated with a 4-0 vicryl subcuticular stitch.? The patient tolerated the procedure well.? The incision was cleaned and covered with a telfa sheet, ABD pad, and medipore tape.? She was then taken to the PACU in good condition.
--- NOTE | 2024-08-05 14:17 | W.PM.OP ---
Operative Note Operative Note PRE-OP DIAGNOSIS: ashley breech POST-OP DIAGNOSIS: same PROCEDURE: External Cephalic Version SURGEON: Avani Bal ASSISTING SURGEON: Inge Reece ANESTHESIA TYPE: Epidural Refer to Anesthesia Record ESTIMATED BLOOD LOSS: 200 PATHOLOGY: other (Placenta) Patient was transported to: floor Patient's condition: stable Indications: Ashley breech presentation at 38 0/7 in the setting of pre-eclampsia with severe features. Findings: Ashley breech presentation; back to maternal left. Procedure Description: 29 yo (h/o x1) presents at 38 0/7 for scheduled ECV for ashley breech presentation incidentally discovered on ultrasound performed last week. She has since been diagnosed with pre-eclampsia with severe features, and we will be pursuing delivery, today. Her is further complicated by GDMA1 (blood sugars well controlled) and adult ADHD. She has been thoroughly counseled on the risks and benfits of the proedure and wishes to proceed with external cephalic version with subsequent induction, possible section with transmission of blood products as necessary. Ms. Banegas was taken to the OR with IV fluids running. Epidural anesthesia was established, and she was positioned in supine position. FHT were category 1 and ashley breech presentation with back to maternal left was confirmed. The abdomen was covered in olive oil and I attempted to disengage the bottom from the pelvis while encouraging a counter-clockwise rotation. This, along with clockwise rotation was attempted for a total of 4 attempts, with assessment including position and heart tones in between each effort. Despite notable effort, no progress was made with any of the trials. Given the completely lack of progress despite notable efforts, a decision was made to call the procedure unsuccessful, and a decision was made with the patient's consent to proceed with section for failed external cephalic version. See note for details. Date of Procedure: 08/05/24
--- NOTE | 2024-08-05 14:56 | W.ANESPOSTOP ---
Postoperative Evaluation Date, Time and Location Date Performed: 08/05/24 Time Performed: 14:50 Patient Location: PACU Vital Signs Most Recent Imported Vital Signs: Most Recent Vital Signs Temp Pulse Resp BP Pulse Ox 36.4 C L 72 17 124/83 100 08/05/24 14:29 08/05/24 14:41 08/05/24 14:41 08/05/24 14:40 08/05/24 14:41 Pain Score Most Recent Pain Score: Most Recent Pain Score Pain Level 5 08/05/24 14:29 Assessment Mental Status: Awake (Alert & Oriented to Patient Baseline) Airway and Respiratory Function: Patent airway with normal (patient baseline) respiratory exam Cardiovascular Function: Hemodynamically Stable Hydration Status: Adequately Hydrated Nausea & Vomiting: No Nausea or Vomiting Pain: Pain is tolerable per patient (Crampy) Peripheral Nerve Block: Patient did not receive a nerve block
[2024-08-05 18:23] LABS: Obstetrics Magnesium 5.1 mg/dL (1.8-2.4)
[2024-08-05] MEDS: Normal Saline Flush 10 ML SYR IVP (20:38)
[2024-08-05] MEDS: Acetaminophen 325 MG TAB 650 MG PO (20:38)
[2024-08-05] MEDS: Ketorolac 30 MG/ML VIAL IVP (20:38)
[2024-08-05 23:41] LABS: Obstetrics Magnesium 1.6 mg/dL (1.8-2.4)
[2024-08-06] VITALS (19 sets, daily range): BP systolic 117–144; BP diastolic 69–85; PULSE 65–81; RESP 16–18; TEMP 36.3–37.3; O2SAT 98–100
[2024-08-06] MEDS: Acetaminophen 325 MG TAB 650 MG PO ×4 (00:23→19:52)
[2024-08-06 00:30] LABS: Obstetrics Magnesium 5.6 mg/dL (1.8-2.4)
[2024-08-06] MEDS: Ketorolac 30 MG/ML VIAL IVP ×2 (02:21→08:13)
[2024-08-06] MEDS: Normal Saline Flush 10 ML SYR IVP ×2 (02:22→08:12)
[2024-08-06] MEDS: Lactated Ringers 1,000 ML 75 ML IV (06:20)
[2024-08-06] MEDS: MAGNESIUM SULFATE 20 GM/500 ML BAG IV_INF (06:21)
[2024-08-06] MEDS: Docusate Sodium 100 MG CAP PO (08:12)
[2024-08-06] MEDS: Levothyroxine 75 MCG TAB PO (11:36)
[2024-08-06] MEDS: oxyCODONE 5 MG TAB PO ×3 (11:36→21:36)
[2024-08-06] MEDS: Lisdexamphetamine 40 MG CAP PO (11:36)
[2024-08-06] MEDS: Ibuprofen 600 MG TAB PO ×2 (14:10→19:52)
[2024-08-06] MEDS: Amphet Asp/Amphet/D-Amphet 10 MG TAB 20 MG PO (14:10)
--- NOTE | 2024-08-06 14:43 | W.PM.OBPNV1 ---
Date of service: 08/06/24 Time of Service: 08:00 Assessment and Plan Assessment and plan (1) History of section: Status: Chronic Assessment and plan: 29 yo G3 now P2012 (h/o x1, LTCS x1) s/p 38 wk PLTCS on 08/05 at noon; EBL 200 - Rh+ / Rub I / VZV I / GBS neg - complicated by ashley breech presentation (failed EVC), GDMA1 (blood sugar testing all normal), hypothyroid - Intrapartum management complicated by failed ECV - course appropriate - without issue - No overt s/sx depression - Not yet ambulating - Tolerating regular diet - Spencer still in plce (diuressing well) - Contraceptive planning: pending - Counseling on addictive potential of narcotics; pending - Discharge: pending (2) Preeclampsia: Status: Acute Assessment and plan: Diagnosis based on elevated liver enzymes on admission in the setting of gHTN. Initiated Magnesium therapy around 10 am on 08/05. Asymptomatic and diuressing well. Plan for d/c of magnesium at 24 hours . No severe-range blood pressures; BP medication not currently indicated. (3) Gestational diabetes: Status: Resolved Assessment and plan: Well controlled with normal testing. High suspicion for false positive testing. (4) Hypothyroid: Status: Chronic Assessment and plan: Currently on 50 / 75 mg Levothyroxine. Subjective Subjective Interval history: 29 yo G3 now P2012 ( x1, LTCS x1) s/p 37 week PLTCS on 08/05 around noon, EBL 200; currently on magnesium therapy. Reports feeling well this morning. She has not yet ambulated. Pain is appropriately controlled for . She is tolerating small, regular meals. She is without issue. Spencer still in place. She denies s/sx of pre-eclampsia. Lochia appropriate. Exam Physical Exam Vital signs: Temp Pulse Resp BP Pulse Ox 99.1 F 78 18 144/80 H 98 08/06/24 14:00 08/06/24 14:00 08/06/24 14:00 08/06/24 14:00 08/06/24 14:00 Constitutional Constitutional: no acute distress HEENT Exam HEENT Exam: Normal Respiratory Exam Respiratory Exam: Normal Abdominal Exam Comments: Non-distended; incision covered with bandage. Fundal Exam Fundus: Below Umbilicus and Firm Extremities Exam Comment: Mild edema equally bilaterally. SCD's in place. Psychiatric Exam Psychiatric Exam: Normal Results Hemoglobin/Hematocrit: Hgb 11.1 g/dL (11.2-15.7) L 08/05/24 10:18 Hct 35.1 % (36.0-46.0) L 08/05/24 10:18 Abnormal Lab Findings: Abnormal Labs 08/05/24 08/05/24 08/05/24 00:52 10:18 18:01 Hgb 11.1 L Hct 35.1 L MCH 26.6 L MCHC 31.6 L Glucose 72 L Calcium 10.2 H Magnesium 5.6 H 1.6 L 5.1 H AST 45 H Alkaline Phosphatase 324 H Albumin 2.8 L
[2024-08-07] MEDS: Ibuprofen 600 MG TAB PO ×2 (01:02→08:22)
[2024-08-07] MEDS: Acetaminophen 325 MG TAB 650 MG PO ×2 (01:02→08:20)
[2024-08-07 03:24] VITALS: BP 127/87; PULSE 85; RESP 16; TEMP 36.5; O2SAT 97
[2024-08-07] MEDS: Levothyroxine 75 MCG TAB PO (05:11)
[2024-08-07] MEDS: oxyCODONE 5 MG TAB PO ×3 (05:11→12:46)
[2024-08-07 08:00] VITALS: BP 136/87; PULSE 80; RESP 18; TEMP 36.8; O2SAT 99
[2024-08-07] MEDS: Docusate Sodium 100 MG CAP PO (08:22)
[2024-08-07] MEDS: Lisdexamphetamine 40 MG CAP PO (08:23)
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
[2024-08-07] MEDS: Amphet Asp/Amphet/D-Amphet 10 MG TAB 20 MG PO (12:45)
--- NOTE | 2024-08-07 15:01 | W.PM.OBNL1 ---
Date of service: 08/07/24 Time of Service: 15:04 Informed Consent Informed Consent: Augmentation of Labor, Section Delivery, Induction of Labor, Regional Anesthesia, Risk,Benefits,Alternatives Discussed and Other (external cephalic version) Objective Temp Pulse Resp BP Pulse Ox 98.2 F 80 18 136/87 99 08/07/24 08:00 08/07/24 08:00 08/07/24 08:00 08/07/24 08:00 08/07/24 08:00 Laboratory Results WBC 6.75 10^3/uL (4.4-10.8) 08/05/24 10:18 RBC 4.17 10^6/uL (3.93-5.22) 08/05/24 10:18 Hgb 11.1 g/dL (11.2-15.7) L 08/05/24 10:18 Hct 35.1 % (36.0-46.0) L 08/05/24 10:18 MCV 84 fL (80-95) 08/05/24 10:18 MCH 26.6 pg (27.0-33.0) L 08/05/24 10:18 MCHC 31.6 % (32.0-36.0) L 08/05/24 10:18 RDW 13.9 % (11.7-14.6) 08/05/24 10:18 Plt Count 262 10^3/uL (130-400) 08/05/24 10:18 MPV 10.6 fL (8.0-11.0) 08/05/24 10:18 Sodium 141 mmol/L (136-145) 08/05/24 10:18 Potassium 3.8 mmol/L (3.5-5.1) 08/05/24 10:18 Chloride 107 mmol/L (98-107) 08/05/24 10:18 Carbon Dioxide 25.1 mmol/L (21.0-32.0) 08/05/24 10:18 Anion Gap 8.9 mmol/L (3-11) 08/05/24 10:18 BUN 11 mg/dL (7-18) 08/05/24 10:18 Creatinine 0.8 mg/dL (0.55-1.02) 08/05/24 10:18 Est GFR (CKD-EPI 2020) 100.96 (mL/min/1.73m2) 08/05/24 10:18 Glucose 72 mg/dL (74-106) L 08/05/24 10:18 Calcium 10.2 mg/dL (8.5-10.1) H 08/05/24 10:18 Magnesium 5.1 mg/dL (1.8-2.4) H 08/05/24 18:01 Total Bilirubin 0.3 mg/dL (0.2-1.0) 08/05/24 10:18 AST 45 U/L (15-37) H 08/05/24 10:18 ALT 32 U/L (14-59) 08/05/24 10:18 Alkaline Phosphatase 324 U/L (46-116) H 08/05/24 10:18 Total Protein 6.4 g/dL (6.4-8.2) 08/05/24 10:18 Albumin 2.8 g/dL (3.4-5.0) L 08/05/24 10:18 Ur Random Creatinine 40.17 mg/dL 08/05/24 09:55 U Random Total Protein 10.1 mg/dL 08/05/24 09:55 U [place] Prot/Creat Ratio 0.25 08/05/24 09:55 ABO/Rh O Positive 08/05/24 10:18 Antibody Screen NEGATIVE 08/05/24 10:18 Results Hemoglobin/Hematocrit: Hgb 11.1 g/dL (11.2-15.7) L 08/05/24 10:18 Hct 35.1 % (36.0-46.0) L 08/05/24 10:18 Abnormal Lab Findings: Abnormal Labs 08/05/24 08/05/24 08/05/24 00:52 10:18 18:01 Hgb 11.1 L Hct 35.1 L MCH 26.6 L MCHC 31.6 L Glucose 72 L Calcium 10.2 H Magnesium 5.6 H 1.6 L 5.1 H AST 45 H Alkaline Phosphatase 324 H Albumin 2.8 L
--- NOTE | 2024-08-13 16:36 | W.PM.OBNL1 ---
Date of service: 08/05/24 Time of Service: 16:37 Informed Consent Informed Consent: Augmentation of Labor, Section Delivery, Induction of Labor, Regional Anesthesia, Risk,Benefits,Alternatives Discussed and Other (external cephalic version) Pelvic Exam Dilation: 0 Effacement (%): 25 station: -3 Cervix Position: posterior Consistency: medium Vaginal Exam Presentation: Breech (confirmed by pocus exam) Contractions Monitor Mode: External Contraction Frequency(min): irregular Contraction Duration(sec): 50 Intensity: Mild Fetus A Monitor: External (US) Heart Rate Baseline: 140 Presentation: Cephalic Variability: Moderate (6-25 BPM) Categories: Category I FHR Rhythm: Regular Accelerations: 15 X 15 Decelerations: None Amniotic Membrane Status: Intact Assessment and Plan Assessment and plan (1) Breech presentation: Status: Acute Assessment and plan: Breech presentation confirmed and no evidence of active labor. Her care will be assumed by Dr Bal for external cephalic version. Objective Temp Pulse Resp BP Pulse Ox 98.2 F 80 18 136/87 99 08/07/24 08:00 08/07/24 08:00 08/07/24 08:00 08/07/24 08:00 08/07/24 08:00 Laboratory Results WBC 6.75 10^3/uL (4.4-10.8) 08/05/24 10:18 RBC 4.17 10^6/uL (3.93-5.22) 08/05/24 10:18 Hgb 11.1 g/dL (11.2-15.7) L 08/05/24 10:18 Hct 35.1 % (36.0-46.0) L 08/05/24 10:18 MCV 84 fL (80-95) 08/05/24 10:18 MCH 26.6 pg (27.0-33.0) L 08/05/24 10:18 MCHC 31.6 % (32.0-36.0) L 08/05/24 10:18 RDW 13.9 % (11.7-14.6) 08/05/24 10:18 Plt Count 262 10^3/uL (130-400) 08/05/24 10:18 MPV 10.6 fL (8.0-11.0) 08/05/24 10:18 Sodium 141 mmol/L (136-145) 08/05/24 10:18 Potassium 3.8 mmol/L (3.5-5.1) 08/05/24 10:18 Chloride 107 mmol/L (98-107) 08/05/24 10:18 Carbon Dioxide 25.1 mmol/L (21.0-32.0) 08/05/24 10:18 Anion Gap 8.9 mmol/L (3-11) 08/05/24 10:18 BUN 11 mg/dL (7-18) 08/05/24 10:18 Creatinine 0.8 mg/dL (0.55-1.02) 08/05/24 10:18 Est GFR (CKD-EPI 2020) 100.96 (mL/min/1.73m2) 08/05/24 10:18 Glucose 72 mg/dL (74-106) L 08/05/24 10:18 Calcium 10.2 mg/dL (8.5-10.1) H 08/05/24 10:18 Magnesium 5.1 mg/dL (1.8-2.4) H 08/05/24 18:01 Total Bilirubin 0.3 mg/dL (0.2-1.0) 08/05/24 10:18 AST 45 U/L (15-37) H 08/05/24 10:18 ALT 32 U/L (14-59) 08/05/24 10:18 Alkaline Phosphatase 324 U/L (46-116) H 08/05/24 10:18 Total Protein 6.4 g/dL (6.4-8.2) 08/05/24 10:18 Albumin 2.8 g/dL (3.4-5.0) L 08/05/24 10:18 Ur Random Creatinine 40.17 mg/dL 08/05/24 09:55 U Random Total Protein 10.1 mg/dL 08/05/24 09:55 U [place] Prot/Creat Ratio 0.25 08/05/24 09:55 ABO/Rh O Positive 08/05/24 10:18 Antibody Screen NEGATIVE 08/05/24 10:18 Subjective Patient Reports: New Complaints Interval history since last seen: Jm was admitted by Dr Bal for external cephalic version. Jm reported that she began experiencing contractions while en route to the hospital. I performed a cervical exam to assess for labor and pocus exam to confirm breech presentation. Results Hemoglobin/Hematocrit: Hgb 11.1 g/dL (11.2-15.7) L 08/05/24 10:18 Hct 35.1 % (36.0-46.0) L 08/05/24 10:18 Abnormal Lab Findings: Abnormal Labs 08/05/24 08/05/24 08/05/24 00:52 10:18 18:01 Hgb 11.1 L Hct 35.1 L MCH 26.6 L MCHC 31.6 L Glucose 72 L Calcium 10.2 H Magnesium 5.6 H 1.6 L 5.1 H AST 45 H Alkaline Phosphatase 324 H Albumin 2.8 L WW Pocus Exam Exam testing Date/Time of Exam: Date of exam: 08/13/2024 Time of exam: 4:36 pm Performing Provider: Macrina Spivey MELANIE Calculator Estimated Delivery Date Method WG Current Estimate 08/19/24 LMP (Certain) Other Estimates 08/16/24 Ultrasound #1 Infant Delivery Date-Baby A 08/05/24 38w 0d position Gestational age (weeks): 37 Presentation: Vertex Coding for Transabdominal exam: Complete exam
== END 2024-08-07 17:37 | disposition home or self-care (01) | DRG 788 ==
PROVIDERS: Admitting Provider Obstetrics & Gynecology; PCP Physician Assistant Medical; Visit Provider Obstetrics & Gynecology
PROC: 10D07Z8 Extraction of Products of Conception, Other, Via Natural or Artificial Opening (ICD-10-PCS; CPT 59412; principal; 2024-08-05 10:30)
PROC: 10D00Z1 Extraction of Products of Conception, Low, Open Approach (ICD-10-PCS; CPT 59514; 2024-08-05 10:30)
DX: O32.1XX0 Maternal care for breech presentation, not applicable or unspecified; Z37.0 Single live birth; Z3A.38 38 weeks gestation of pregnancy; O24.410 Gestational diabetes mellitus in pregnancy, diet controlled; O14.14 Severe pre-eclampsia complicating childbirth; O99.284 Endocrine, nutritional and metabolic diseases complicating childbirth; O77.0 Labor and delivery complicated by meconium in amniotic fluid; O69.3XX0 Labor and delivery complicated by short cord, not applicable or unspecified; O99.344 Other mental disorders complicating childbirth; F90.9 Attention-deficit hyperactivity disorder, unspecified type; O99.324 Drug use complicating childbirth; F11.11 Opioid abuse, in remission; F15.90 Other stimulant use, unspecified, uncomplicated
CPT/HCPCS: 59514; 59412; 36415; 80053; 85027; 86850; 86900; 86901; 82565; 83735; 84156; 88307; J0131; J0665; J0690; J1100; J1885; J2274; J2371; J2405; J3010; J3475; J3490

== ENCOUNTER 2024-09-30 13:38 | Outpatient (CLI) | payer MEDICAID, SELFPAY ==
[2024-09-30 14:18] LABS: ALT 30 U/L (14-59); AST 27 U/L (15-37); Albumin 4.4 g/dL (3.4-5.0); Alkaline Phosphatase 84 U/L (46-116); BUN 10 mg/dL (7-18); Bilirubin, Total 0.7 mg/dL (0.2-1.0); Calcium 9.5 mg/dL (8.5-10.1); Chloride 102 mmol/L (98-107); Estimated GFR 77.24 (mL/min/1.73m2); Glucose 99 mg/dL (74-106); Potassium 3.9 mmol/L (3.5-5.1); Sodium 137 mmol/L (136-145); TSH (W/Ref FT4) 0.82 uIU/mL (0.36-3.74)
== END 2024-09-30 13:39 | disposition home or self-care (01) ==
LOC: LBO 13:38
PROVIDERS: PCP Physician Assistant Medical; Visit Provider Advanced Practice Midwife
DX: E03.8 Other specified hypothyroidism (principal); O14.93 Unspecified pre-eclampsia, third trimester
CPT/HCPCS: 36415; 80053; 84443